=== PATIENT | female | born 1985 | race Hispanic/Latino ===

== ENCOUNTER 2024-05-11 13:13 | Emergency (ER) | payer BC ==
--- OUTSIDE RECORDS SUMMARY | 2024-05-11 13:15 | XMS REPORT | Continuity of Care Document ---
Author Name Unknown Address [address] [facility] [address] [place] [address] [facility] thconnect Address 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 Name Role Phone Argentina Lauretn Attending Clinician Unavailable JUVE RODRIGUEZ Attending Clinician Unavailable Radiology Attending Clinician Unavailable RADIOLOGY Attending Clinician Unavailable Doctor Unassigned, [place] Attending Clinician U trev Caro MD, Sesar Navarrete Attending Clinician KNOW, DOES_NOT Admitting Clinician Unavailable Payers Payer Name Policy Type Policy Number Effective Date Expirati on Date Source [employer] [id number] 2019 00:00:00 [employer] [facility] [id number] 2019 00:00:00 Allergies, Adverse Reactions, Alerts Allergy Name Allergy Type Status Severity Reaction(s) Onset Date Inactive Date Treating Clinician Comments Source No Known Allergie s DA Active U 2019-03 00:00: 00 [facility] No Known Allergie s DA Active U 2019-03 00:00: 00 [facility] NO KNOWN ALLERGIE S Drug Class Active [facility] Encounters Start Date/Time End Date/Time Encounter Type Admission Type Attending Clinicians Care Facility Care Department Encounter ID Source 2020-01-29 14:00:00 Inpatient Argentina Rich [facility] DAYS [id number] [facility] 2020-06-25 15:20:00 2020-06-25 15:20:00 Outpatient R JUVE RODRIGUEZ [facility] [id number] [facility] 2020-06-04 15:20:00 2020-06-04 15:20:00 Outpatient [facility] [id number] [facility] 2019-12-03 16:51:45 2019-12-03 23:59:00 Hospital Encounter Radiology [facility] [id number] 2019-12-03 00:00:00 2019-12-03 00:00:00 Outpatient R RADIOLOGY [facility] [id number] [facility] 2019-12-03 00:00:00 2019-12-03 00:00:00 Orders Only Doctor Unassigned, [place] [facility] [id number] 2019-05-12 20:14:02 2019-05-12 21:16:05 Urgent Care S[facility] Caro [facility] [id number] Results Test Description Test Time Test Comments Results Result Co mments Source COVID 19 Asymptomatic IH [id number] 18:30:00* Test Item Value Reference Range Interpretation Comme nts COVID 19 Asymptomatic IH AG (test code = COVNONPUIAG) NEGATIVE NEGATIVE This test has be en authorized only for the detection ofproteins from SARS-CoV-2, not for any other viruses orpathogens. Negative results should be treated as presumptive andconfirmed with a molecular assay, if necessary for patientmanagement. Negative results do not rule out COVID-19 andshould not be used as the sole basis for treatment orpatient management decisions, including infection controldecisions. Negative results should be considered in thecontext of a patient's recent exposures, history and thepresence of clinical signs and symptoms consistent withCOVID-19. This test has not been FDA cleared or approved; the test hasbeen authorized by FDA under an Emergency Use Authorization(EUA) for use by laboratories certified under the CLIA thatmeet the requirements to perform moderate, high or waivedcomplexity tests. This test is authorized for use at thePoint of Care (POC), i.e., in patient care settingsoperating under a CLIA Certificate of Waiver, Certificate ofCompliance, or Certificate of Accreditation. This test is only authorized for the duration of thedeclaration that circumstances exist justifying theauthorization of emergency use of in vitro diagnostic testsfor detection and/or diagnosis of COVID-19 under Cpgzlku055(b)(1) of the Act, 21 U.S.C. 360bbb-3(b)(1), unless theauthorization is terminated or revoked sooner. HCG [id number] 18:17:00* Test Item Value Reference Range Interpretation Comme nts HCG SERUM (test code = HCG) <1 INTERPRETATION:V ALUES BETWEEN 15-20 milliInternational units/mL NEED TO BERETESTED WITHIN 48 HOURS. All units for these ranges are in milliInternationalunits/mL0-1 WK AFTER CONCEPTION 0-50 1-2 WKS AFTER CONCEPTION 40-3002-3 WKS AFTER CONCEPTION 100-1,0003-4 WKS AFTER CONCEPTION 500-6,0001-2 MONTHS AFTER CONCEPTION 5,000-200,0002-3 MONTHS AFTER CONCEPTION 10,000-100,0002ND TRIMESTER 3,000-50,0003RD TRIMESTER 1,000-50,000 SPECIMENS WITH AN HCG LEVEL FROM 0-6 milliInternationalunits/mL SHOULD BE CONSIDERED NEGATIVE CBC W/AUTO [id number] 17:31:00* Test Item Value Reference Range Interpretation Comme nts WHITE BLOOD CELL (test code = WBC) 5.9 K/mm3 6.6-12.1 L RED BLOOD CELL (test code = RBC) 3.70 M/mm3 3.45-5.01 N HEMOGLOBIN (test code = HGB) 9.8 g/dL 10.7-13.9 L HEMATOCRIT (test code = HCT) 32.3 % 32.1-42.1 N MEAN CELL VOLUME (test code = MCV) 87 fL 84.1-94.8 N MEAN CELL HGB (test code = MCH) 26.5 pg 27-35 L MEAN CELL HGB CONCETRATION ( test code = MCHC) 30.3 gm/dL 32.2-34.1 L RED CELL DISTRIBUTION WIDTH (test code = RDW) 13.7 % 12.4-16.5 N PLATELET COUNT (test code = PLT) 366 K/mm3 133-385 N MEAN PLATELET VOLUME (test c ode = MPV) 11.5 fl 9.1-12.7 N NEUTROPHIL % (test code = NT%) 48.0 % 56.5-79.4 L LYMPHOCYTE % (test code = LY%) 40.9 % 14.3-34.3 H MONOCYTE % (test code = MO%) 8.4 % 5.1-10.4 N EOSINOPHIL % (test code = EO%) 1.5 % 0.1-3.0 N BASOPHIL % (test code = BA%) 1.0 % 0.1-1.0 N NEUTROPHIL # (test code = NT#) 2.8 K/mm3 LYMPHOCYTE # (test code = LY#) 2.4 K/mm3 MONOCYTE # (test code = MO#) 0.5 K/mm3 EOSINOPHIL # (test code = EO#) 0.09 K/mm3 BASOPHIL # (test code = BA#) 0.1 K/mm3 RBC MORPHOLOGY REQUIRED (rosa elena t code = RBCM) NORMAL NORMAL PLATELET MORPHOLOGY REQUIRED (test code = PLTMR) NORMAL NORMAL Notes Date/Time Note Provider Source 2020-01-29 09:27:00 [id number] [facility] [place] [id number] PATIENT NAME: JORGE L BLACKMON ADMIT DATE: 01/29/20 ACCOUNT NO: [id number] ROOM NO: AGE: 34 SEX: F ADMITTING PHYSICIAN: ATTENDING PHYSICIAN: Argentina Laurent MD OPERATION DATE: 01/29/2020 PREOPERATIVE DIAGNOSES: 1. Menometrorrhagia. 2. Uterine fibroids. POSTOPERATIVE DIAGNOSES: 1. Menometrorrhagia. 2. Uterine fibroids. PROCEDURES PERFORMED: 1. Hysteroscopic resection of multiple submucosal fibroids. 2. Robotic laparoscopic myomectomy. SURGEON: Argentina Laurent MD TOOL AND DIE MAKER APPRENTICE: Wendy Jefferson DO ANESTHESIA: General endotracheal. COMPLICATIONS: None. ESTIMATED BLOOD LOSS: 20 mL. URINE OUTPUT: 200 mL. FLUIDS GIVEN: 1L of crystalloids. FINDINGS: On hysteroscopic evaluation, multiple submucosal fibroids were noted. During laparoscopic evaluation, the upper abdomen was entered and noted to be normal. The uterus was enlarged to 12 weeks with a 4 cm anterior left lateral fibroid and a 1 cm posterior right fundal fibroid. Both the fallopian tubes and ovaries appeared to be normal. PROCEDURE IN DETAIL: The patient was taken to the operating room and was placed in supine position. After giving general anesthesia, she was placed in lithotomy position. She was prepped and draped in a sterile fashion. Time-out was performed. A Turk catheter was placed in the bladder for continuous bladder drainage. An examination under anesthesia was performed. A weighted speculum was placed in the vagina. Anterior vaginal wall was retracted with Davenport speculum. The anterior lip of the cervix was grasped with single-tooth tenaculum. The uterus was sounded to 9 cm. The cervix was PATIENT NAME: JORGE L BLACKMON gradually dilated and a Malcolm and Nephew hysteroscope was introduced into the uterine cavity. Normal saline was used as distention medium. On inspection of the endometrial cavity, multiple submucosal fibroids were noted including an anterior 3 cm fibroid. Pitressin was injected into the cervix at 4 o'clock and 8 o'clock position for hemostasis. A dense tissue shaver was then introduced through the hysteroscope and the fibroids were resected. The tissue obtained was sent for pathologic evaluation. Good hemostasis was noted. The hysteroscope was removed and gentle sharp curettage was performed and minimal endometrial tissue was obtained, which was sent for pathologic evaluation. A BRAIN II uterine manipulator with an 8-cm tip was introduced into the uterine cavity and the intracavitary balloon was inflated. The speculum and the tenaculum were removed. Marcaine was infiltrated in the umbilicus and a 1 cm incision was made. Veress needle was introduced into the peritoneal cavity and after confirming its intraperitoneal placement, pneumoperitoneum was created. After obtaining adequate pneumoperitoneum, Veress needle was removed. An 8-mm trocar with cannula was introduced into the abdomen. The trocar was removed and the laparoscope was introduced. After inspecting the upper abdomen, the patient was placed in deep Trendelenburg position. The pelvic anatomy was inspected. Ports for robotic arms 1 and 2 were placed in the right and the left lower quadrant under direct vision. The environmental engineering assistant port was introduced in the right mid abdomen again under direct vision. Pitressin was injected into the uterus for hemostasis. The robot was then docked. An elliptical incision was made on the 4 cm left lateral lower segment fibroid and the fibroid was enucleated. The hysterotomy incision was closed in 2 layers including the superficial baseball stitch using 2-0 V-Loc suture. Good hemostasis was noted. A 1 cm right posterior fibroid was similarly removed and good hemostasis was noted. The pelvis was thoroughly irrigated and intraperitoneal pressure was decreased and hemostasis was maintained. An Endobag was introduced through the umbilical port with a camera through the right robotic port. The fibroids were placed in an Endobag and the bag was removed through the extended umbilical incision. The fascial incision in the umbilicus was closed with 0 Vicryl and all the skin incisions were closed with 3-0 Monocryl. The patient tolerated the procedure well. The sponge, lap, needle, and instrument counts were correct x2. The anesthesia was reversed. The patient was extubated and shifted to the recovery room in a good condition. Dictated By: Argentina Laurent MD WT: OP:FLUCY/ELIZABETH/GAGE Conf#: [id number]/DID#: [id number] Authenticated by Argentina Laurent MD On 02/07/2020 07:56:26 AM PATIENT NAME: SHERI BLACKMONA at 0756 PATIENT NAME: JORGE L BLACKMON [facility] 2020-01-29 09:17:00 [facility] Brief Op Note REPORT#:[id number] REPORT STATUS: Signed DATE:01/29/20 TIME: 916 PATIENT: JORGE L BLACKMON UNIT #: [id number] ROOM/BED: : 84 AGE: 34 SEX: F ATTEND: Argentina Laurent MD ADM AUTHOR: Argentina Laurent MD * ALL edits or amendments must be made on the electronic/computer document * Op/Inv Proc Note - Brief Pre-procedure diagnosis: menorrhagia uterine fibroids Post-procedure diagnosis: same as pre procedure dx Procedures performed: Hysteroscopy, truclear resection of multiple uterine fibroids, robotic laparoscopic myomectomy Primary Surgeon: Argentina Laurent Press Operator Apprentice(s): Wendy Jefferson Anesthesia: general anesthesia Findings: multiple sumbucosal fibroids, normal upper abdomen, uterus 12 weeks with a 4 cm anterior fibroid and 1 cm posterior right lateral fibroid, normal tubes and ovaries Complications: none Estimated blood loss in ml's: 20 cc Specimens removed/altered: submucosal fibroids, endometrial curettings, intramural fibroids Fluids: 1000 cc Urine output: 200 cc Approach: laparoscopic Wound class: clean Disposition: PACU at 0920 RPT #:[id number] END OF REPORT [facility]
[2024-05-11 15:37] LABS: Absolute Basophils 0.1 K/uL (0-0.5); Absolute Eosinophils 0.1 K/uL (0-0.5); Absolute Lymphocytes (CBC) 1.5 K/uL (0.7-4.9); Absolute Monocytes 0.4 K/uL (0.1-1.3); Absolute Neutrophil 2.1 K/uL (1.8-8.0); Eosinophils % 2.3 % (0-4.4); Hematocrit 21.3 % (36.0-45.0); Hemoglobin 6.4 g/dL (12.0-15.0); Lymphocytes % 35.6 % (15.3-44.8); MCH 17.6 pg (27.0-35.0); MCHC 29.8 g/dL (32.0-36.0); MPV 8.7 fL (7.6-11.3); Monocytes % 8.8 % (3.3-12.3); Neutrophils % 51.3 % (41.7-73.7); Nucleated Red Blood Cells % 0.1 % (0-0); Platelets 356 thou/uL (152-406); RBC Red Blood Cell Count 3.61 M/uL (3.86-4.86); Red Cell Distribution Width 19.2 % (12.1-15.2)
[2024-05-11 15:54] LABS: Albumin/Globulin Ratio 0.7 (1.1-1.8); Anion Gap 7.6 mEq/L (5.0-15.0); Bilirubin Total 0.3 mg/dL (0.2-1.0); Globulin 4.1 g/dL (2.3-3.5); Potassium 3.6 mEq/L (3.5-5.1); Protein, Total 7.1 g/dL (6.4-8.2)
[2024-05-11] MEDS ORDERED: NA CHLORIDE 0.9% 250 ML ONE ×2 (16:35→19:19)
[2024-05-11 17:15] LABS: Anisocytosis 3+; Blood Morphology Comment NOTED (NOT SEEN); Microcytosis 3+; Platelet Estimate ADEQ; White Blood Cell Scan OK (OK)
[2024-05-11 17:19] LABS: Hypochromasia 2+; Ovalocytes 1+
--- NOTE | 2024-05-11 22:09 | EDPHYS ---
Physician Documentation [facility] Name: Martha Blackmon Age: 39 yrs Sex: Female : 1985 Arrival Date: 05/11/2024 Time: 13:13 Bed 15 Private MD: GAEL Physician Carlos Barrientos HPI: 05/11 13:32 This 39 yrs old Female presents to ER via Ambulatory with complaints of Abnormal Lab kb Results. 13:32 Pt is a 39 year old female who presents for low hemoglobin (5.2). States she has had kb heavy bleeding since 04/20, has a history of fibroids and was seen by body care manager for this who called today with blood results and told her she needed a transfusion. States they did discuss a hysterectomy so that will be happening soon. States the bleeding has almost subsided now. . HELP DESK REPRESENTATIVE: 13:30 LMP 04/20/2024, unknown ap3 Historical: - Allergies: 13:28 No Known Allergies; ap3 - Home Meds: 13:28 control [Active]; ap3 - PMHx: 13:28 fibroids; ap3 - Immunization history:: Client reports receiving the 2nd dose of the Covid vaccine, Flu vaccine is not up to date. - Infectious Disease History:: Denies. - Social history:: Smoking status: Patient denies any tobacco usage or history of. ROS: 13:34 Constitutional: As per HPI kb Exam: 13:34 Constitutional: This is a well developed, well nourished patient who is awake, alert, kb and in no acute distress. Head/Face: Normocephalic, atraumatic. ENT: Moist Mucous membranes Cardiovascular: Regular rate Respiratory: Respirations even and unlabored. No increased work of breathing. Talking in full sentences Abdomen/GI: Soft, non-tender. No distention Skin: Warm, dry with normal turgor. Normal color. MS/ Extremity: Pulses equal, no cyanosis. Neurovascular intact. Full, normal range of motion. Neuro: Awake and alert, GCS 15, oriented to person, place, time, and situation. Vital Signs: 13:25 BP 135 / 71; Pulse 88; Resp 18; Temp 98.5; Pulse Ox 98% on R/A; Weight 61.23 kg; Height ap3 5 ft. 0 in. ; Pain 0/10; 16:30 BP 110 / 72; Pulse 78; Resp 18; Pulse Ox 99% on R/A; ph 17:30 BP 116 / 72; Pulse 72; Resp 16; Pulse Ox 100% on R/A; ph 18:44 BP 97 / 74; Pulse 67; Resp 18; Temp 97.4; Pulse Ox 100% ; ph 19:23 BP 116 / 75; Pulse 70; Resp 18; Temp 98.2(O); Pulse Ox 99% on R/A; Pain 0/10; rg5 22:03 BP 114 / 75; Pulse 68; Resp 18; Temp 98.1(O); Pulse Ox 100% on R/A; Pain 0/10; rg5 13:25 Body Mass Index 26.37 (61.23 kg, 152.4 cm) ap3 13:25 Pain Scale: Adult ap3 19:23 Pain Scale: Adult rg5 22:03 Pain Scale: Adult rg5 MDM: 13:31 Medical Screening Exam initiated kb 13:34 Data reviewed: vital signs, nurses notes. kb 16:43 Differential diagnosis: anemia, abnormal electrolytes. Counseling: I had a detailed kb discussion with the patient and/or guardian regarding the historical points, exam findings, and any diagnostic results supporting the discharge/admit diagnosis, lab results, the need for outpatient follow up, an OB/Gyne specialist, to return to the emergency department if symptoms worsen or persist or if there are any questions or concerns that arise at home. 05/11 13:31 Order name: CBC with Diff; Complete Time: 17:23 kb 05/11 13:31 Order name: CMP; Complete Time: 15:57 kb 05/11 13:31 Order name: Type And Screen kb 05/11 15:58 Order name: CBC Smear Scan; Complete Time: 17:23 EDMS 05/11 16:03 Order name: LAB Add On sp 05/11 16:47 Order name: ABO/RH no charge; Complete Time: 16:47 EDMS 05/11 16:50 Order name: Packed RBC Leukored EDDC 05/11 13:31 Order name: IV Start; Complete Time: 15:30 kb Administered Medications: No medications were administered Disposition Summary: 05/11/24 22:09 Discharge Ordered Notes: Location: Home sb4 Condition: Stable sb4 Diagnosis - Anemia, unspecified sb4 - Abnormal uterine and vaginal bleeding, unspecified sb4 Followup: kb - With: Emergency Department - When: As needed - Reason: Worsening of condition Followup: kb - With: Private Physician - When: 2 - 3 days - Reason: Recheck today's complaints, Continuance of care, Re-evaluation by your physician Discharge Instructions: - Discharge Summary Sheet kb - Abnormal Uterine Bleeding, [id number] kb - Blood Transfusion, Adult, Care After, Nlbo-na-[id number] kb Forms: - Patient Portal Instructions sb4 - Leadership Thank You Letter sb4 Critical care time excluding procedures: 16:44 Critical care time: Bedside Care: 30 minutes. Total time: 30 minutes kb Addendum: 05/13/2024 12:40 Co-signature as Attending Physician, Carlos Barrientos MD I agree with the assessment and c norris plan of care. Signatures: Dispatcher [employer] EDMargi Luevano, FLOWER [employer]OP LABORER/DESIGNER-C [employer] LABORER/DESIGNER-Carlos Pineda MD MD cha Prokisch, Amanda RN RN ap3 Veda Brito, PA-C PAViraC sb4 Corrections: (The following items were deleted from the chart) 05/11 13:29 13:28 PMHx: firboids; ap3 ap3
--- NOTE | 2024-05-11 22:09 | ER ---
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 patient states their office called and told her that her "blood levels" were 5.2, and she needed a transfusion. 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 Coronavirus screen: At this time, the client does not indicate any symptoms associated with coronavirus-19. Ebola Screen: No symptoms or risks identified at this time. Initial Sepsis Screen: Does the patient meet any 2 criteria? No. Patient's initial sepsis screen is negative. Does the patient have a suspected source of infection? No. Patient's initial sepsis screen is negative. Risk Assessment: Do you want to hurt yourself or someone else? Patient reports no desire to harm self or others. Onset of symptoms is unknown. 13:25 Method Of Arrival: Ambulatory ap3 13:25 Acuity: BROWN 3 ap3 Triage Assessment: 13:29 General: Appears in no apparent distress. Behavior is calm, cooperative, appropriate ap3 for age, Reports fatigue for. Pain: Denies pain. Neuro: Bunn Agitation-Sedation Scale (RASS): Level of Consciousness is awake, alert, obeys commands, Oriented to person, place, time, situation, Appropriate for age. Cardiovascular: Patient's skin is warm and dry. Respiratory: Airway is patent Respiratory effort is even, unlabored, Respiratory pattern is regular, symmetrical. DIGITAL ART DIRECTOR: 13:30 LMP 04/20/2024, unknown ap3 Historical: - Allergies: 13:28 No Known Allergies; ap3 - Home Meds: 13:28 control [Active]; ap3 - PMHx: 13:28 fibroids; ap3 - Immunization history:: Client reports receiving the 2nd dose of the Covid vaccine, Flu vaccine is not up to date. - Infectious Disease History:: Denies. - Social history:: Smoking status: Patient denies any tobacco usage or history of. Screenin:30 [facility] ED Fall Risk Assessment (Adult) History of falling in the last 3 months, ap3 including since admission No falls in past 3 months (0 pts) Confusion or Disorientation No (0 pts) Intoxicated or Sedated No (0 pts) Impaired Gait No (0 pts) Mobility Assist Device Used No (0 pt) Altered Elimination No (0 pt) Score/Fall Risk Level 0 - 2 = Low Risk Oriented to surroundings, Maintained a safe environment, Educated pt \\T\\ family on fall prevention, incl call for assistance when getting out of bed, Assessed \\T\\ reinforced patient's understanding of fall precautions, Hourly rounding (assess needs \\T\\ fall precautionary measures) done, Used ambulatory aids as needed (educated on \\T\\ assisted with). Abuse screen: Denies threats or abuse. Nutritional screening: No deficits noted. Tuberculosis screening: No symptoms or risk factors identified. Assessment: 15:29 General: Appears in no apparent distress. comfortable, slender, well groomed, Behavior ph is calm, cooperative, appropriate for age, Reports fatigue for >3 days. Pain: Denies pain. Neuro: Level of Consciousness is awake, alert, obeys commands, Oriented to person, place, time, situation. Cardiovascular: Capillary refill < 3 seconds in bilateral fingers Patient's skin is warm and dry. Respiratory: Reports shortness of breath on exertion Airway is patent Respiratory effort is even, unlabored, Respiratory pattern is regular, symmetrical. GI: No signs and/or symptoms were reported involving the gastrointestinal system. : Reports vaginal bleeding that is with clots, heavy flow. Derm: Skin is dry, Skin is pale, Skin temperature is warm. Musculoskeletal: Circulation, motion, and sensation intact. Range of motion: intact in all extremities. 17:00 Reassessment: Patient appears in no apparent distress at this time. Patient and/or ph family updated on plan of care and expected duration. Pain level reassessed. Patient is alert, oriented x 3, equal unlabored respirations, skin warm/dry/pink. Awaiting PRBCs from blood bank, pt resting comfortably. 18:43 Reassessment: Patient appears in no apparent distress at this time. Patient and/or ph family updated on plan of care and expected duration. Pain level reassessed. Patient is alert, oriented x 3, equal unlabored respirations, skin warm/dry/pink. 19:15 General: Appears in no apparent distress. comfortable, Behavior is calm, cooperative, rg5 appropriate for age. Pain: Denies pain. Neuro: Level of Consciousness is awake, alert, obeys commands, Oriented to person, place, time, situation. Cardiovascular: Capillary refill < 3 seconds Patient's skin is warm and dry. Respiratory: Airway is patent Respiratory effort is even, unlabored, Respiratory pattern is regular, symmetrical. GI: No signs and/or symptoms were reported involving the gastrointestinal system. : Reports vaginal bleeding that is with clots, heavy flow. EENT: No deficits noted. Derm: Skin is intact, Skin is dry, Skin is normal, Skin temperature is warm. Musculoskeletal: Circulation, motion, and sensation intact. Range of motion: intact in all extremities. 20:30 Reassessment: No changes from previously documented assessment. Patient and/or family rg5 updated on plan of care and expected duration. Pain level reassessed. Patient is alert, oriented x 3, equal unlabored respirations, skin warm/dry/pink. 21:23 Reassessment: No changes from previously documented assessment. Patient and/or family rg5 updated on plan of care and expected duration. Pain level reassessed. Patient is alert, oriented x 3, equal unlabored respirations, skin warm/dry/pink. 22:05 Reassessment: No changes from previously documented assessment. Patient and/or family rg5 updated on plan of care and expected duration. Pain level reassessed. Patient is alert, oriented x 3, equal unlabored respirations, skin warm/dry/pink. Vital Signs: 13:25 BP 135 / 71; Pulse 88; Resp 18; Temp 98.5; Pulse Ox 98% on R/A; Weight 61.23 kg; Height ap3 5 ft. 0 in. ; Pain 0/10; 16:30 BP 110 / 72; Pulse 78; Resp 18; Pulse Ox 99% on R/A; ph 17:30 BP 116 / 72; Pulse 72; Resp 16; Pulse Ox 100% on R/A; ph 18:44 BP 97 / 74; Pulse 67; Resp 18; Temp 97.4; Pulse Ox 100% ; ph 19:23 BP 116 / 75; Pulse 70; Resp 18; Temp 98.2(O); Pulse Ox 99% on R/A; Pain 0/10; rg5 22:03 BP 114 / 75; Pulse 68; Resp 18; Temp 98.1(O); Pulse Ox 100% on R/A; Pain 0/10; rg5 13:25 Body Mass Index 26.37 (61.23 kg, 152.4 cm) ap3 13:25 Pain Scale: Adult ap3 19:23 Pain Scale: Adult rg5 22:03 Pain Scale: Adult rg5 ED Course: 13:16 Patient arrived in ED. im 13:28 Triage completed. ap3 13:30 Arm band placed on right wrist. ap3 13:31 Margi Solano FNP-C is PHCP. kb 13:31 Carlos Barrientos MD is Attending Physician. kb 14:31 Ly Holley RN is Primary Nurse. ph 15:28 Initial lab(s) drawn, by nm, sent to lab. T\\T\\S collected, blood band applied to patient. ph Inserted saline lock: 20 gauge in right antecubital area, using aseptic technique. Blood collected. Flushed with 10 mL NS. 15:30 Patient has correct armband on for positive identification. Bed in low position. Call ph light in reach. Side rails up X 1. Door closed. Noise minimized. Warm blanket given. Pillow given. 15:30 Type And Screen Sent. ph 15:30 CMP Sent. ph 15:30 CBC with Diff Sent. ph 16:37 LAB Add On Sent. ph 16:43 Consent for blood and/or blood product transfusion explained by staff, explained by physician, signed by patient. 17:05 PHCP role handed off by Margi Solano FNP-C sb4 17:05 Veda Brito PA-C is PHCP. sb4 18:46 No provider procedures requiring assistance completed. ph 19:35 Door closed. Noise minimized. rg5 22:12 Provided Education on: post er care. rg5 22:12 IV discontinued, bleeding controlled, No redness/swelling at site. Pressure dressing rg5 applied. Administered Medications: No medications were administered Medication: 15:30 VIS not applicable for this client. ph 19:35 Blood products: PRBCs X 2 units given. See transfusion record. rg5 22:05 Blood products: completed. rg5 Outcome: 22:09 Discharge ordered by . sb4 22:22 Discharged to home ambulatory, rg5 22:22 Condition: stable 22:22 Discharge instructions given to patient, family, Instructed on discharge instructions, follow up and referral plans. Demonstrated understanding of instructions, follow-up care, 22:22 Patient left the ED. 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 patient states their office called and told her that her "blood levels" were 5.2, and she needed a transfusion. 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 ap3
[2024-05-11 22:36] VITALS: BP 114/75; TEMP 98.1; O2SAT 100
== END 2024-05-11 22:22 | disposition home or self-care (01) ==
LOC: ER 13:13
DX: D64.9 Anemia, unspecified (principal)
CPT/HCPCS: 85025; 36415; 86900; 86850; 86901; 86920 ×2; 80053; 36430; 99284; P9016 ×2; J7050 ×2

== ENCOUNTER 2024-07-27 11:13 | Emergency (ER) | payer BC ==
--- OUTSIDE RECORDS SUMMARY | 2024-07-27 11:16 | XMS REPORT | Continuity of Care Document ---
Author Name Unknown Address [address] [place] [address] [facility] [place] Address 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 Name Role Phone Mehran Argentina Jo Attending Clinician Unavailable JUVE RODRIGUEZ Attending Clinician Unavailable Radiology Attending Clinician Unavailable RADIOLOGY Attending Clinician Unavailable Doctor Unassigned, [place] Attending Clinician U trev Caro MD, Sesar Navarrete Attending Clinician KNOW, DOES_NOT Admitting Clinician Unavailable Payers Payer Name Policy Type Policy Number Effective Date Expirati on Date Source [employer] [id number] 2019 00:00:00 [employer] [facility] [id number] 2019 00:00:00 Allergies, Adverse Reactions, Alerts Allergy Name Allergy Type Status Severity Reaction(s) Onset Date Inactive Date Treating Clinician Comments Source No Known Allergie s DA Active U 2019-03 00:00: 00 [facility] No Known Allergie s DA Active U 2019-03 00:00: 00 [facility] NO KNOWN ALLERGIE S Drug Class Active [facility] Encounters Start Date/Time End Date/Time Encounter Type Admission Type Attending Clinicians Care Facility Care Department Encounter ID Source 2020-01-29 14:00:00 Inpatient Argentina Rich [facility] [id number] [facility] 2020-06-25 15:20:00 2020-06-25 15:20:00 Outpatient R JUVE RODRIUGEZ [facility] [id number] [facility] 2020-06-04 15:20:00 2020-06-04 15:20:00 Outpatient [facility] [id number] [facility] 2019-12-03 16:51:45 2019-12-03 23:59:00 Hospital Encounter Radiology [facility] [id number] 2019-12-03 00:00:00 2019-12-03 00:00:00 Outpatient R RADIOLOGY [facility] [id number] [facility] 2019-12-03 00:00:00 2019-12-03 00:00:00 Orders Only Doctor Unassigned, [place] [facility] [id number] 2019-05-12 20:14:02 2019-05-12 21:16:05 Urgent Care [facility] Car[facility] [id number] Results Test Description Test Time Test Comments Results Result Co mments Source COVID 19 Asymptomatic IH [id number] 18:30:00* Test Item Value Reference Range Interpretation [...] testsfor detection and/or diagnosis of COVID-19 under Gmhvbfl795(b)(1) of the Act, 21 U.S.C. 360bbb-3(b)(1), unless theauthorization is terminated or revoked sooner. HCG [id number] 18:17:00* Test Item Value Reference Range Interpretation [...] milliInternationalunits/mL SHOULD BE CONSIDERED NEGATIVE CBC W/AUTO [id number] 17:31:00* Test Item Value Reference Range Interpretation [...] Notes Date/Time Note Provider Source 2020-01-29 09:27:00 [id number] [facility] [address] [address] PATIENT NAME: JORGE L PRATER ADMIT DATE: 01/29/20 ACCOUNT NO: [id number] ROOM NO: AGE: 34 SEX: F ADMITTING PHYSICIAN: ATTENDING PHYSICIAN: Argentina Laurent MD OPERATION DATE: 01/29/2020 PREOPERATIVE DIAGNOSES: 1. Menometrorrhagia. 2. Uterine fibroids. POSTOPERATIVE DIAGNOSES: 1. Menometrorrhagia. 2. Uterine fibroids. PROCEDURES PERFORMED: 1. Hysteroscopic resection of multiple submucosal fibroids. 2. Robotic laparoscopic myomectomy. SURGEON: Argentina Laurent MD DIRECTOR OF PRECLINICAL RESEARCH: Wendy Jefferson DO ANESTHESIA: General endotracheal. COMPLICATIONS: [...] The cervix was PATIENT NAME: JORGE L PRATER gradually dilated and a Malcolm and Nephew [...] left lower quadrant under direct vision. The speech assistant port was introduced in the right [...] condition. Dictated By: Argentina Laurent MD WT: OP:NELLY/ELIZABETH/GAGE Conf#: [id number]/DID#: [id number] Authenticated by Argentina Laurent MD On 02/07/2020 07:56:26 AM PATIENT NAME: MOIJORGE L at 0756 PATIENT NAME: MOIJORGE L [facility] 2020-01-29 09:17:00 [facility] Brief Op Note REPORT#:[id number] REPORT STATUS: Signed DATE:01/29/20 TIME: 916 PATIENT: JORGE L PRATER UNIT #: [id number] ROOM/BED: : 84 AGE: 34 SEX: F ATTEND: Argentina Laurent MD ADM AUTHOR: Argentina Laurent MD * ALL edits or amendments must be made on the electronic/computer document * Op/Inv Proc Note - Brief Pre-procedure diagnosis: menorrhagia uterine fibroids Post-procedure diagnosis: same as pre procedure dx Procedures performed: Hysteroscopy, truclear resection of multiple uterine fibroids, robotic laparoscopic myomectomy Primary Surgeon: Argentina Laurent Speech Assistant(s): Wendy Jefferson Anesthesia: general anesthesia Findings: multiple [...] class: clean Disposition: PACU at 0920 RPT #:[id number] END OF REPORT [facility]
[2024-07-27 12:10] LABS: Absolute Basophils 0.1 K/uL (0-0.5); Absolute Eosinophils 0.1 K/uL (0-0.5); Absolute Lymphocytes (CBC) 1.4 K/uL (0.7-4.9); Absolute Monocytes 0.4 K/uL (0.1-1.3); Absolute Neutrophil 1.7 K/uL (1.8-8.0); Basophils % 2.6 % (0-1.3); Eosinophils % 2.8 % (0-4.4); Hematocrit 15.3 % (36.0-45.0); Lymphocytes % 38.2 % (15.3-44.8); MCH 18.6 pg (27.0-35.0); MCHC 30.1 g/dL (32.0-36.0); MCV 61.8 fL (80-100); Monocytes % 11.8 % (3.3-12.3); Neutrophils % 44.6 % (41.7-73.7); Nucleated Red Blood Cells % 0.4 % (0-0); Platelets 337 thou/uL (152-406); RBC Red Blood Cell Count 2.48 M/uL (3.86-4.86); Red Cell Distribution Width 18.9 % (12.1-15.2)
[2024-07-27 12:21] LABS: Hemoglobin 4.6 g/dL (12.0-15.0)
[2024-07-27 12:26] LABS: ALT/SGPT 15 U/L (13-56); AST/SGOT 11 U/L (15-37); Albumin 2.7 g/dL (3.4-5.0); Albumin/Globulin Ratio 0.7 (1.1-1.8); Alkaline Phosphatase 27 U/L (45-117); Anion Gap 11.7 mEq/L (5.0-15.0); BUN Blood Urea Nitrogen 9 mg/dL (7-18); Bicarbonate 22 mEq/L (21-32); Bilirubin Direct < 0.2 mg/dL (0-0.2); Bilirubin Indirect, Calculated 0.1 mg/dL (0.2-0.8); Bilirubin Total 0.3 mg/dL (0.2-1.0); Globulin 3.8 g/dL (2.3-3.5); Glomerular Filtration Rate 107 ml/min (=/>90); Glucose Level 109 mg/dL (74-106); NT PRO-BNP 276 pg/mL (<125); Potassium 3.7 mEq/L (3.5-5.1); Protein, Total 6.5 g/dL (6.4-8.2); Sodium Level 140 mEq/L (136-145); Troponin High Sensitivity < 3.0 pg/mL (<58.9)
[2024-07-27 12:53] LABS: Anisocytosis 2+; Blood Morphology Comment NOTED (NOT SEEN); Hypochromasia 2+; Microcytosis 2+; Platelet Estimate ADEQ; White Blood Cell Scan OK (OK)
--- NOTE | 2024-07-27 13:10 | RAD REPORT ---
Procedure: Chest Single View HISTORY: Palpitations COMPARISON: none FINDINGS: The lungs appear clear of acute infiltrate. No significant pleural effusion noted. The heart is normal size. IMPRESSION: No acute abnormality is displayed.
[2024-07-27] MEDS ORDERED: NA CHLORIDE 0.9% 250 ML ONE (22:00)
--- NOTE | 2024-07-28 03:19 | ER ---
Nurse's Notes [facility] Name: Martha Blackmon Age: 39 yrs Sex: Female : 1985 Arrival Date: 07/27/2024 Time: 11:13 Bed 13 Private MD: Diagnosis: Anemia, unspecified Presentation: 07/27 11:32 Chief complaint: Patient states: Fatigue and SOB x 1 week, hx of uterine fibroids and ph heavy periods, has been anemic in the past and says the symptoms feel the same, plus has bilateral ankle swelling. Coronavirus screen: Vaccine status: Patient reports being unvaccinated. Ebola Screen: No symptoms or risks identified at this time. Initial Sepsis Screen: Does the patient meet any 2 criteria? No. Patient's initial sepsis screen is negative. Does the patient have a suspected source of infection? No. Patient's initial sepsis screen is negative. Risk Assessment: Do you want to hurt yourself or someone else? Patient reports no desire to harm self or others. Onset of symptoms was July 27, 2024. 11:32 Method Of Arrival: Ambulatory ph 11:32 Acuity: BROWN 3 ph Triage Assessment: 11:34 General: Appears in no apparent distress. comfortable, well groomed, Behavior is calm, ph cooperative, appropriate for age. General: Reports fatigue for >3 days. Pain: Denies pain. Respiratory: Reports shortness of breath. : Reports vaginal bleeding that is light flow. Historical: - Allergies: 12:41 No Known Allergies; me1 - PMHx: 12:41 fibroids; me1 - Immunization history:: Adult Immunizations up to date. - Infectious Disease History:: Denies. - Social history:: Smoking status: Patient denies any tobacco usage or history of. Screenin:41 [facility] ED Fall Risk Assessment (Adult) History of falling in the last 3 months, me1 including since admission No falls in past 3 months (0 pts) Confusion or Disorientation No (0 pts) Intoxicated or Sedated No (0 pts) Impaired Gait No (0 pts) Mobility Assist Device Used No (0 pt) Altered Elimination No (0 pt) Score/Fall Risk Level 0 - 2 = Low Risk Maintained a safe environment, Provided non-skid footwear, Hourly rounding (assess needs \T\ fall precautionary measures) done. Abuse screen: Denies threats or abuse. Nutritional screening: No deficits noted. Tuberculosis screening: No symptoms or risk factors identified. Assessment: 11:35 General: Appears in no apparent distress. well groomed, well developed, well nourished, me1 Behavior is calm, cooperative, appropriate for age, Reports Fatigue and SOB x 1 week, hx of uterine fibroids and heavy periods, has been anemic in the past and says the symptoms feel the same, plus has bilateral ankle swelling. Pain: Denies pain. Neuro: Level of Consciousness is awake, alert, obeys commands, Oriented to person, place, time, situation, Appropriate for age. Cardiovascular: Patient's skin is warm and dry. Respiratory: Reports shortness of breath on exertion since a week ago Airway is patent Respiratory effort is even, unlabored, Respiratory pattern is regular, symmetrical. GI: No signs and/or symptoms were reported involving the gastrointestinal system. : No signs and/or symptoms were reported regarding the genitourinary system. EENT: No signs and/or symptoms were reported regarding the EENT system. Derm: Skin is intact, is healthy with good turgor, Skin is pale. Musculoskeletal: Swelling present in right leg and left leg. 22:33 General: Blood transfusion started by this RN. Pt observed for the first 15 minutes. kd3 Rate increased to 175 mls an hour. Pt is aware of Signs and symptoms to report to the RN. . General: Appears in no apparent distress. Behavior is calm, cooperative. Pain: Denies pain. Neuro: Level of Consciousness is awake, alert, obeys commands, Oriented to person, place, time, situation. Respiratory: Airway is patent Trachea midline Respiratory effort is even, unlabored, Respiratory pattern is regular, symmetrical. 07/28 00:26 General: First unit is complete. No adverse reactions. . Neuro: Level of Consciousness kd3 is awake, alert, obeys commands, Oriented to person, place, time, situation. Respiratory: Airway is patent Trachea midline Respiratory effort is even, unlabored, Respiratory pattern is regular, symmetrical. 02:26 General: Second unit of blood started. . kd3 03:14 General: Second unit of blood finished. . kd3 Vital Signs: 07/27 11:32 BP 129 / 71; Pulse 97; Resp 18; Temp 98; Pulse Ox 100% on R/A; Weight 58.97 kg; Height ph 5 ft. 4 in. ; 12:00 BP 119 / 61; Pulse 86; Resp 16; Pulse Ox 100% ; me1 13:00 BP 105 / 63; Pulse 75; Resp 17; Pulse Ox 100% ; me1 14:00 BP 111 / 82; Pulse 86; Resp 15; Pulse Ox 100% ; me1 15:00 BP 102 / 62; Pulse 87; Resp 15; Pulse Ox 100% ; me1 16:00 BP 107 / 71; Pulse 85; Resp 15; Pulse Ox 100% ; me1 17:00 BP 109 / 62; Pulse 91; Resp 17; Pulse Ox 100% ; me1 18:00 BP 117 / 52; Pulse 100; Resp 18; Pulse Ox 99% ; me1 19:00 BP 112 / 61; Pulse 99; Resp 15; Pulse Ox 100% ; me1 20:00 BP 106 / 55; Pulse 88; Resp 16; Pulse Ox 100% ; me1 22:32 BP 117 / 68; Pulse 105; Resp 17; Temp 98.5(O); Pulse Ox 100% on R/A; kd3 07/28 00:00 BP 117 / 71; Pulse 82; Resp 17; Pulse Ox 100% on R/A; kd3 02:25 BP 103 / 62; Pulse 75; Resp 19; Pulse Ox 100% on R/A; kd3 03:15 BP 114 / 71; Pulse 78; Resp 18; Temp 98.2(O); Pulse Ox 100% on R/A; kd3 07/27 11:32 Body Mass Index 22.31 (58.97 kg, 162.56 cm) ph ED Course: 07/27 11:16 Patient arrived in ED. mr 11:19 Margi Solano FNP-C is PHCP. kb 11:19 Lemuel Wade MD is Attending Physician. kb 11:34 Triage completed. ph 11:34 Arm band placed on Patient placed in an exam room, on a stretcher. ph 11:39 EKG done, by ED staff, reviewed by Margi ENGLAND. eb 11:58 Charisse Brown, CAYLA is Primary Nurse. me1 12:02 Basic Metabolic Panel Sent. em1 12:02 CBC with Diff Sent. em1 12:02 LFT's Sent. em1 12:02 Magnesium Sent. em1 12:02 NT PRO-BNP Sent. em1 12:02 Troponin HS Sent. em1 12:02 Type And Screen Sent. em1 12:02 Initial lab(s) drawn, by me, sent to lab. T\T\S collected, blood band applied to patient. em1 Inserted saline lock: 20 gauge in right forearm, using aseptic technique. Blood collected. Flushed with 10 mL NS. 12:38 XRAY Chest (1 view) In Process Unspecified. EDMS 12:38 Type And Screen Sent. me1 12:41 Patient has correct armband on for positive identification. Bed in low position. Call me1 light in reach. Side rails up X2. Provided Education on: POC. Verbalized understanding.. Client placed on continuous cardiac and pulse oximetry monitoring. NIBP monitoring applied. Pulse ox on. NIBP on. 12:41 No provider procedures requiring assistance completed. me1 17:13 PHCP role handed off by Margi Solano FNP-C cp 17:13 Carlos Shea PA is PHCP. cp 22:45 Primary Nurse role handed off by Charisse Brown, CAYLA kd3 22:45 Chyna Killian RN is Primary Nurse. kd3 07/28 03:25 IV discontinued, intact, bleeding controlled, No redness/swelling at site. Pressure kd3 dressing applied. Administered Medications: No medications were administered Medication: 07/27 12:41 VIS not applicable for this client. me1 Outcome: 07/28 03:19 Discharge ordered by MD. cp 03:25 Discharged to home ambulatory, with family, kd3 03:25 Condition: stable 03:25 Discharge instructions given to patient, family, Instructed on discharge instructions, follow up and referral plans. Demonstrated understanding of instructions, follow-up care, 03:25 Patient left the ED. kd3 Signatures: Dispatcher [employer] EDMS Margi Solano FNP-C FNP-Celestina Pierce, Reg Phi Jose Juan Aden em1 Ly Holley RN RN Carlos Shea PA PA cp Botello, Elizabeth eb Doucette, Kyli, RN RN kd3 Charisse Brown, CAYLA RN ia1 Corrections: (The following items were deleted from the chart) 07/27 12:39 11:32 Chief complaint: Patient states: Fatigue and SOB x 1 week, hx of uterine fibroids me1 and heavy periods, has been anemic in the past and says the symptoms feel the same, plus has bilateral ankle swelling ph 12:41 12:41 Allergies: No Known Allergies; me1 me1
--- NOTE | 2024-07-28 03:19 | EDPHYS ---
Physician Documentation [facility] Name: Martha Blackmon Age: 39 yrs Sex: Female : 1985 Arrival Date: 07/27/2024 Time: 11:13 Bed 13 Private MD: ED Physician Lemuel Wade HPI: 07/27 11:23 This 39 yrs old Female presents to ER via Unassigned with complaints of Ankle kb Swelling. 11:23 Pt is a 39 year old female who presents for shortness of breath, fatigue, palpitations kb on exertion for one week. Also noticed bilateral ankle swelling last weekend. States she has had to have a blood transfusion in the past and these symptoms are similar to that time. Reports she has fibroids and heavy periods which has caused the anemia. denies current bleeding. Scheduled to see [facility] on Monday to discuss hysterectomy. . Historical: - Allergies: 12:41 No Known Allergies; me1 - PMHx: 12:41 fibroids; me1 - Immunization history:: Adult Immunizations up to date. - Infectious Disease History:: Denies. - Social history:: Smoking status: Patient denies any tobacco usage or history of. ROS: 11:24 Constitutional: As per HPI kb Exam: 11:24 Constitutional: This is a well developed, well nourished patient who is awake, alert, kb and in no acute distress. Head/Face: Normocephalic, atraumatic. ENT: Moist Mucous membranes Cardiovascular: Regular rate Respiratory: Respirations even and unlabored. No increased work of breathing. Talking in full sentences Abdomen/GI: Soft, non-tender. No distention Skin: Warm, dry with normal turgor. Normal color. MS/ Extremity: Pulses equal, no cyanosis. Neurovascular intact. Full, normal range of motion. Neuro: Awake and alert, GCS 15, oriented to person, place, time, and situation. 11:53 ECG was reviewed by the Attending Physician. kb Vital Signs: 11:32 BP 129 / 71; Pulse 97; Resp 18; Temp 98; Pulse Ox 100% on R/A; Weight 58.97 kg; Height ph 5 ft. 4 in. ; 12:00 BP 119 / 61; Pulse 86; Resp 16; Pulse Ox 100% ; me1 13:00 BP 105 / 63; Pulse 75; Resp 17; Pulse Ox 100% ; me1 14:00 BP 111 / 82; Pulse 86; Resp 15; Pulse Ox 100% ; me1 15:00 BP 102 / 62; Pulse 87; Resp 15; Pulse Ox 100% ; me1 16:00 BP 107 / 71; Pulse 85; Resp 15; Pulse Ox 100% ; me1 17:00 BP 109 / 62; Pulse 91; Resp 17; Pulse Ox 100% ; me1 18:00 BP 117 / 52; Pulse 100; Resp 18; Pulse Ox 99% ; me1 19:00 BP 112 / 61; Pulse 99; Resp 15; Pulse Ox 100% ; me1 20:00 BP 106 / 55; Pulse 88; Resp 16; Pulse Ox 100% ; me1 22:32 BP 117 / 68; Pulse 105; Resp 17; Temp 98.5(O); Pulse Ox 100% on R/A; kd3 07/28 00:00 BP 117 / 71; Pulse 82; Resp 17; Pulse Ox 100% on R/A; kd3 02:25 BP 103 / 62; Pulse 75; Resp 19; Pulse Ox 100% on R/A; kd3 03:15 BP 114 / 71; Pulse 78; Resp 18; Temp 98.2(O); Pulse Ox 100% on R/A; kd3 07/27 11:32 Body Mass Index 22.31 (58.97 kg, 162.56 cm) ph MDM: 07/27 11:19 Medical Screening Exam initiated 11:24 Data reviewed: vital signs, nurses notes. 14:01 Differential diagnosis: Anemia, acute renal failure, CHF. Consideration of kb Admission/Observation Escalation of care including admission/observation considered. Transfer considered for anemia due to vaginal bleeding but patient is not currently having any bleeding and prefers to follow-up outpatient after blood transfusions today.. Counseling: I had a detailed discussion with the patient and/or guardian regarding the historical points, exam findings, and any diagnostic results supporting the discharge/admit diagnosis, lab results, the need for outpatient follow up, an OB/Gyne specialist, to return to the emergency department if symptoms worsen or persist or if there are any questions or concerns that arise at home. 17:15 Transition of care: After a detail discussion of the patient's case, care is kb transferred to Carlos ESTRADA. 07/27 11:25 Order name: Type And Screen 07/27 14:03 Order name: Antibody Identification [facility] 07/27 14:24 Order name: Sendout Antibody ID [facility] 07/27 11:25 Order name: Basic Metabolic Panel; Complete Time: 12:27 kb 07/27 11:25 Order name: CBC with Diff; Complete Time: 12:55 kb 07/27 11:25 Order name: LFT's; Complete Time: 12:27 kb 07/27 11:25 Order name: Magnesium; Complete Time: 12:27 kb 07/27 11:25 Order name: NT PRO-BNP; Complete Time: 12:27 kb 07/27 11:25 Order name: Troponin HS; Complete Time: 12:27 kb 07/27 12:53 Order name: CBC Smear Scan; Complete Time: 12:55 [facility] 07/27 14:32 Order name: Packed RBCs (Additional Unit) [facility] 07/27 11:25 Order name: XRAY Chest (1 view); Complete Time: 13:13 kb 07/27 11:25 Order name: Cardiac monitoring; Complete Time: 12:21 kb 07/27 11:25 Order name: EKG - Nurse/Tech; Complete Time: 11:39 kb 07/27 11:25 Order name: IV Saline Lock; Complete Time: 12:02 kb 07/27 11:25 Order name: Labs collected and sent; Complete Time: 12:02 kb 07/27 11:25 Order name: O2 Per Protocol; Complete Time: 12:21 kb 07/27 11:25 Order name: O2 Sat Monitoring; Complete Time: 12:21 kb 07/27 12:06 Order name: Labs - recollect needed: RECOLLECT T\T\S to include today's date; Complete ss Time: 12:21 EC:53 Rate is 90 beats/min. Rhythm is regular. QRS [place] is Normal. [place] interval is normal at kb 138 msec. QRS interval is normal at 78 msec. QT interval is normal at 403 msec. Administered Medications: No medications were administered Disposition: 07/28 08:12 Co-signature as Attending Physician, Lemuel Wade MD I reviewed the patient's care rn provided by the Advanced Practice Provider and agree with the diagnosis and treatment plan. Disposition Summary: 07/28/24 03:19 Discharge Ordered Notes: Location: Home cp Condition: Stable cp Diagnosis - Anemia, unspecified cp Followup: kb - With: Emergency Department - When: As needed - Reason: Worsening of condition Followup: kb - With: Private Physician - When: 2 - 3 days - Reason: Recheck today's complaints, Continuance of care, Re-evaluation by your physician Discharge Instructions: - Discharge Summary Sheet kb - Anemia kb - Blood Transfusion, Adult, Care After, [id number] kb - Blood Transfusion, Adult cp Forms: - Medication Reconciliation Form cp - Antibiotic Education cp - Prescription Opioid Use cp - Patient Portal Instructions cp - Leadership Thank You Letter cp Critical care time excluding procedures: 07/27 14:02 Critical care time: Bedside Care: 10 minutes, Consultation: 10 minutes, Family kb Intervention: 10 minutes. Total time: 30 minutes Signatures: Dispatcher [employer] EDMS Margi Solano, DAVID-Emma HERNANDEZ-Lemuel Leonard MD MD rn Blanchard, Shelby, RN RN ss Page, Corey, PA PA Charisse Wright RN RN me1 Corrections: (The following items were deleted from the chart) 11:26 11:26 BASIC METABOLIC PANEL+C.LAB.BRZ ordered. EDNE EDMS 11:26 11:26 CBC+H.LAB.BRZ ordered. EDNE EDMS 11:26 11:26 HEPATIC FUNCTION+C.LAB.BRZ ordered. EDNE EDMS 11:26 11:26 MAGNESIUM+C.LAB.BRZ ordered. EDNE EDMS 11:26 11:26 PROBNP+C.LAB.BRZ ordered. EDNE EDMS 11:26 11:26 Troponin High Sensitivity+C.LAB.BRZ ordered. EDNE EDNE 11:26 11:26 TYPE AND SCREEN+BB.LAB.BRZ ordered. EDNE EDMS 11:26 11:26 Chest Single View+RAD.RAD.BRZ ordered. EDNE EDMS 12:41 12:41 Allergies: No Known Allergies; me1 me1 13:25 11:23 Pt is a 39 year old female who presents for shortness of breath, fatigue, kb palpitations on exertion for one week. Also noticed bilateral ankle swelling last weekend. States she has had to have a blood transfusion in the past and these symptoms are similar to that time. Reports she has fibroids and heavy periods which has caused the anemia. Scheduled to see [facility] for hysterectomy. . kb
[2024-07-28 04:04] VITALS: O2SAT 100
[2024-07-28 04:12] VITALS: BP 114/71; TEMP 98.2
--- NOTE | 2024-07-29 12:03 | EKG ---
Test Date: 2024-07-27 Test Time: 11:35:57 Stable Attendant: GOGO MEASUREMENT RESULTS: Intervals: Rate: 90 GA: 138 QRSD: 78 QT: 330 QTc: 403 [place]: P: 39 GA: 138 QRS: 11 T: 3 INTERPRETIVE STATEMENTS: Normal sinus rhythm Normal ECG No previous ECG available for comparison Electronically Signed On 07-29-24 12:02:26 CDT by Cade Car
== END 2024-07-28 03:25 | disposition home or self-care (01) ==
LOC: ER 11:13
PROC: 30233N1 Transfusion of Nonautologous Red Blood Cells into Peripheral Vein, Percutaneous Approach (ICD-10-PCS; principal; 2024-07-28)
DX: D64.9 Anemia, unspecified (principal)
CPT/HCPCS: 93005; 85025; 80048; 36415; 86900; 83735; 86850; 86870 ×2; 86901; 80076; 86920 ×2; 84484; 86922 ×2; 83880; 71045; 99284; 36430; P9016 ×2; J7050